=== PATIENT | female | born 1980 | race Caucasian/White ===

== ENCOUNTER 2020-05-25 11:18 | Emergency (ER) | payer SELFPAY ==
[2020-05-25 13:50] LABS: Absolute Lymphocytes (CBC) 2.5 K/uL (0.7-4.9); Hematocrit 38.5 % (36.0-45.0); Lymphocytes % 33.2 % (15.3-44.8); MPV 8.5 fL (7.6-11.3); RBC Red Blood Cell Count 4.54 M/uL (3.86-4.86)
[2020-05-25 13:52] LABS: Protime INR 0.91
[2020-05-25 14:13] LABS: ALT/SGPT 22 U/L (12-78); AST/SGOT 13 U/L (15-37); Albumin 3.1 g/dL (3.4-5.0); Alkaline Phosphatase 68 U/L (45-117); BUN Blood Urea Nitrogen 10 mg/dL (7-18); Bicarbonate 28 mmol/L (21-32); Bilirubin Direct < 0.1 mg/dL (0-0.2); Bilirubin Total 0.2 mg/dL (0.2-1.0); Glucose Level 176 mg/dL (74-106); Magnesium 1.8 mg/dL (1.8-2.4); NT PRO-BNP 107 pg/mL (<125); Potassium 3.9 mmol/L (3.5-5.1); Protein, Total 6.9 g/dL (6.4-8.2); Sodium Level 142 mmol/L (136-145); Troponin (Emerg Dept Use Only) < 0.02 ng/mL (0.0-0.045)
--- NOTE | 2020-05-25 14:36 | RAD REPORT ---
EXAM DESCRIPTION: Noy Single View05/25/2020 1:54 pm CLINICAL HISTORY: Shortness of breath COMPARISON: none FINDINGS: The lungs appear clear of acute infiltrate. The heart is normal size IMPRESSION: No acute abnormalities displayed
--- NOTE | 2020-05-25 14:49 | EDPHYS ---
Physician Documentation [facility] Name: Roz Batista Age: 39 yrs Sex: Female : 1980 Arrival Date: 05/25/2020 Time: 11:20 Bed 17 Private MD: KAREEN Physician Doyle Deng HPI: 05/25 14:59 This 39 yrs old Female presents to ER via Ambulatory with complaints of Leg kb Swelling. 14:59 Pt reports she has had swelling to entire body for 3 weeks. States it is better in the kb mornings. . Onset: The symptoms/episode began/occurred 3 week(s) ago. Severity of symptoms: At their worst the symptoms were mild moderate in the emergency department the symptoms are unchanged. The patient has not experienced similar symptoms in the past. The patient has not recently seen a physician. 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 - Social history:: Smoking status: Patient reports the use of cigarette tobacco products, smokes one-half pack cigarettes per day. ROS: 14:58 Constitutional: Negative for fever, chills, and weight loss, Neck: Negative for injury, kb pain, and swelling, Cardiovascular: Negative for chest pain, palpitations. +edema Abdomen/GI: Negative for abdominal pain, nausea, vomiting, diarrhea, and constipation, Back: Negative for injury and pain, MS/Extremity: Negative for injury and deformity, Skin: Negative for injury, rash, and discoloration, Neuro: Negative for headache, weakness, numbness, tingling, and seizure. 14:58 Respiratory: Positive for shortness of breath, Negative for cough, dyspnea on exertion, hemoptysis, orthopnea, pleurisy, sputum production, wheezing. Exam: 14:58 Constitutional: This is a well developed, well nourished patient who is awake, alert, kb and in no acute distress. Head/Face: Normocephalic, atraumatic. Chest/axilla: Normal chest wall appearance and motion. Nontender with no deformity. No lesions are appreciated. Cardiovascular: Regular rate and rhythm with a normal S1 and S2. No gallops, murmurs, or rubs. Normal PMI, no JVD. No pulse deficits. Respiratory: Lungs have equal breath sounds bilaterally, clear to auscultation and percussion. No rales, rhonchi or wheezes noted. No increased work of breathing, no retractions or nasal flaring. Abdomen/GI: Soft, non-tender, with normal bowel sounds. No distension or tympany. No guarding or rebound. No evidence of tenderness throughout. Skin: Warm, dry with normal turgor. Normal color with no rashes, no lesions, and no evidence of cellulitis. MS/ Extremity: Pulses equal, no cyanosis. Neurovascular intact. Full, normal range of motion. Neuro: Awake and alert, GCS 15, oriented to person, place, time, and situation. Cranial nerves II-XII grossly intact. Motor strength 5/5 in all extremities. Sensory grossly intact. Cerebellar exam normal. Normal gait. 14:58 ECG was reviewed by the Attending Physician. Vital Signs: 11:30 BP 121 / 90; Pulse 90; Resp 22; Temp 98(TE); Pulse Ox 100% on R/A; Weight 99.79 kg; sv Height 5 ft. 7 in. (170.18 cm); 14:59 BP 112 / 84; Pulse 82; Resp 14; Pulse Ox 97% on R/A; ss 11:30 Body Mass Index 34.46 (99.79 kg, 170.18 cm) sv MDM: 12:44 Patient medically screened. kb 14:59 Data reviewed: vital signs, nurses notes. Data interpreted: Pulse oximetry: on room air kb is 100 %. Interpretation: normal. 15:00 Counseling: I had a detailed discussion with the patient and/or guardian regarding: the kb historical points, exam findings, and any diagnostic results supporting the discharge/admit diagnosis, lab results, radiology results, the need for outpatient follow up, a family practitioner, to return to the emergency department if symptoms worsen or persist or if there are any questions or concerns that arise at home. 05/25 13:23 Order name: Basic Metabolic Panel; Complete Time: 14:20 kb 05/25 13:23 Order name: CBC with Diff; Complete Time: 13:59 kb 05/25 13:23 Order name: LFT's; Complete Time: 14:20 kb 05/25 13:23 Order name: Magnesium; Complete Time: 14:20 kb 05/25 13:23 Order name: NT PRO-BNP; Complete Time: 14:20 kb 05/25 13:23 Order name: PT-INR; Complete Time: 13:59 kb 05/25 13:23 Order name: Troponin (emerg Dept Use Only); Complete Time: 14:20 kb 05/25 13:23 Order name: XRAY Chest (1 view); Complete Time: 14:37 kb 05/25 13:23 Order name: EKG; Complete Time: 13:23 kb 05/25 13:23 Order name: Cardiac monitoring; Complete Time: 14:06 kb 05/25 13:23 Order name: EKG - Nurse/Tech; Complete Time: 14:06 kb 05/25 13:23 Order name: IV Saline Lock; Complete Time: 13:55 kb 05/25 13:23 Order name: Labs collected and sent; Complete Time: 13:55 kb 05/25 13:23 Order name: O2 Per Protocol; Complete Time: 13:55 kb 05/25 13:23 Order name: O2 Sat Monitoring; Complete Time: 13:55 kb EC:58 Rate is 78 beats/min. Rhythm is regular. QRS [place] is Normal. AR interval is normal at kb 152 msec. QRS interval is normal at 88 msec. QT interval is normal at 416 msec. Administered Medications: No medications were administered Disposition: 05/26 11:11 Co-signature as Attending Physician, Doyle Deng MD I agree with the assessment and cesia plan of care. Disposition: 05/25/20 14:47 Discharged to Home. Impression: Edema, unspecified. - Condition is Stable. - Discharge Instructions: Edema, [id number], Peripheral Edema. - Medication Reconciliation Form, Thank You Letter, Antibiotic Education, Prescription Opioid Use form. - Follow up: Emergency Department; When: As needed; Reason: Worsening of condition. Follow up: Private Physician; When: 2 - 3 days; Reason: Recheck today's complaints, Continuance of care, Re-evaluation by your physician. Signatures: Dispatcher [employer] Ree Vaz FNP-C FNP-Ckb Verde, Stephanie, RN RN sv Anderson, Corey, MD MD cha Smirch, Shelby RN RN ss Corrections: (The following items were deleted from the chart) 05/25 15:01 14:47 05/25/2020 14:47 Discharged to Home. Impression: Edema, unspecified. Condition is ss Stable. Forms are Medication Reconciliation Form, Thank You Letter, Antibiotic Education, Prescription Opioid Use. Follow up: Emergency Department; When: As needed; Reason: Worsening of condition. Follow up: Private Physician; When: 2 - 3 days; Reason: Recheck today's complaints, Continuance of care, Re-evaluation by your physician. kb
--- NOTE | 2020-05-25 14:49 | ER ---
Nurse's Notes [facility] Name: Roz Batista Age: 39 yrs Sex: Female : 1980 Arrival Date: 05/25/2020 Time: 11:20 Bed 17 Private MD: Diagnosis: Edema, unspecified Presentation: 05/25 11:27 Chief complaint: Patient states: report "I'm having swelling all over my body. My legs sv are red as well." Reports the clinic put her on a diuretic and today she took her last pill. Reports headache and intermittent blurry vision x 2 weeks. Risk Assessment: Do you want to hurt yourself or someone else? Patient reports no desire to harm self or others. Onset of symptoms was April 2020. 11:27 Method Of Arrival: Ambulatory sv 11:27 Acuity: SHAILA 3 sv 11:30 Coronavirus screen: Client denies travel out of the [place] in the last 14 days. At this sv time, the client does not indicate any symptoms associated with coronavirus-19. Ebola Screen: No symptoms or risks identified at this time. Initial Sepsis Screen: Does the patient meet any 2 criteria? RR > 20 per min. No. Patient's initial sepsis screen is negative. Does the patient have a suspected source of infection? No. Patient's initial sepsis screen is negative. Triage Assessment: 11:27 General: Appears in no apparent distress. uncomfortable, Behavior is calm, cooperative, sv appropriate for age. Pain:. Neuro: Level of Consciousness is awake, alert, obeys commands, Oriented to person, place, time, situation, Gait is steady, Speech is normal. Respiratory: Respiratory effort is even, unlabored. Derm: Skin is pink, warm \\T\\ dry. Musculoskeletal: Reports swelling all over. 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 - Social history:: Smoking status: Patient reports the use of cigarette tobacco products, smokes one-half pack cigarettes per day. Screenin:25 Abuse screen: Denies threats or abuse. Denies injuries from another. Nutritional ca1 screening: No deficits noted. Tuberculosis screening: No symptoms or risk factors identified. 13:25 Fall Risk IV access (20 points). ca1 Assessment: 13:25 General: Appears in no apparent distress. comfortable, Behavior is calm, cooperative, ca1 appropriate for age. Pain: Denies pain. Neuro: Level of Consciousness is awake, alert, obeys commands, Oriented to person, place, time, situation. Cardiovascular: Heart tones S1 S2 present Capillary refill < 3 seconds Patient's skin is warm and dry. Pulses are all present. Cardiovascular: Parent/caregiver reports patient has had shortness of breath, swelling on both lower extremities for about 2-3 weeks. Respiratory: Airway is patent Respiratory effort is even, unlabored, Respiratory pattern is regular, symmetrical, Breath sounds are clear bilaterally. Respiratory: Reports shortness of breath on exertion and at night while laying flat. GI: Abdomen is round non-distended, Bowel sounds present X 4 quads. Abd is soft and non tender X 4 quads. GI: No signs and/or symptoms were reported involving the gastrointestinal system. : No signs and/or symptoms were reported regarding the genitourinary system. EENT: No signs and/or symptoms were reported regarding the EENT system. Derm: Skin is intact, is healthy with good turgor, Skin is pink, warm \\T\\ dry. Musculoskeletal: Circulation, motion, and sensation intact. Capillary refill < 3 seconds, Swelling present in right leg and left leg, bilateral ankles, pt reports it is coming up her legs. 14:30 Reassessment: Patient appears in no apparent distress at this time. Patient and/or ca1 family updated on plan of care and expected duration. Pain level reassessed. Patient is alert, oriented x 3, equal unlabored respirations, skin warm/dry/pink. Vital Signs: 11:30 BP 121 / 90; Pulse 90; Resp 22; Temp 98(TE); Pulse Ox 100% on R/A; Weight 99.79 kg; sv Height 5 ft. 7 in. (170.18 cm); 14:59 BP 112 / 84; Pulse 82; Resp 14; Pulse Ox 97% on R/A; ss 11:30 Body Mass Index 34.46 (99.79 kg, 170.18 cm) sv ED Course: 11:20 Patient arrived in ED. as 11:27 Arm band placed on. sv 11:29 Triage completed. sv 12:22 Ree [facility] F[facility]-C is [facility]. kb 12:22 Doyle Deng MD is Attending Physician. kb 12:47 Yesy Flannery, RN is Primary Nurse. ca1 13:25 Patient has correct armband on for positive identification. Placed in gown. Bed in low ca1 position. Call light in reach. Side rails up X2. quality assurance monitor body on. Pulse ox on. NIBP on. Warm blanket given. 13:35 Missed attempt(s): 20 gauge in right antecubital area. Bleeding controlled, band aid ca1 applied, catheter tip intact. 13:40 Missed attempt(s): 20 gauge in left antecubital area. Bleeding controlled, band aid ca1 applied, catheter tip intact. 13:45 No provider procedures requiring assistance completed. Initial lab(s) drawn, by me, ca1 sent to lab. Inserted saline lock: 22 gauge in right wrist, using aseptic technique. Blood collected. 13:54 XRAY Chest (1 view) In Process Unspecified. EDMS 15:00 IV discontinued, intact, bleeding controlled, No redness/swelling at site. Pressure ss dressing applied. Administered Medications: No medications were administered Outcome: 14:47 Discharge ordered by MD. kb 15:00 Discharged to home ambulatory. ss 15:00 Condition: good 15:00 Discharge instructions given to patient, Instructed on discharge instructions, follow up and referral plans. Demonstrated understanding of instructions, follow-up care. 15:01 Patient left the ED. ss Signatures: Dispatcher [employer] EDUT Ree Batista FNP-C FNP-Ckb Verde, Stephanie, RN RN sv Martinez, Amelia as Smirch, Shelby, RN RN Yesy Flannery, RN RN ca1 Corrections: (The following items were deleted from the chart) 11:33 11:30 BP 121 / 00; Pulse 90bpm; Resp 22bpm; Pulse Ox 100% RA; Temp 98F Temporal; 99.79 sv kg; Height 5 ft. 7 in.; BMI: 34.4; sv
--- NOTE | 2020-05-26 09:00 | EKG ---
Test Date: 2020-05-25 Test Time: 14:01:18 Field Manager: SRINIVASA MEASUREMENT RESULTS: Intervals: Rate: 78 DC: 152 QRSD: 88 QT: 416 QTc: 474 [place]: P: 68 DC: 152 QRS: 68 T: 62 INTERPRETIVE STATEMENTS: Normal sinus rhythm Normal ECG No previous ECG available for comparison Electronically Signed On 05-26-20 09:00:01 CDT by Sahil Cody
[2020-05-26 21:19] VITALS: TEMP 98
[2020-05-26 21:20] VITALS: BP 112/84; O2SAT 97
== END 2020-05-25 15:01 | disposition home or self-care (01) ==
LOC: ER 11:18
DX: R60.9 Edema, unspecified (principal); F17.210 Nicotine dependence, cigarettes, uncomplicated
CPT/HCPCS: 36415; 71045; 80048; 80076; 83735; 83880; 84484; 85025; 85610; 93005; 99284